=== PATIENT | female | born 1970 | race Caucasian/White ===

== ENCOUNTER → 2021-03-22 | Day surgery (SDC) | payer BC ==
--- NOTE | 2021-03-22 21:43 | RAD REPORT ---
EXAM DESCRIPTION: Ultrasound-guided vacuum assisted breast core biopsy CLINICAL HISTORY: Breast mass 2 MASSES BX COMPARISON: Follow Up Breast Axilla Comp dated 03/10/2021 FINDINGS: Informed consent was obtained and time-out was performed. The patient's left breast was prepped and draped in the usual sterile fashion. 1% lidocaine was used for local anesthetic purposes. Utilizing aseptic technique and ultrasound guidance, a 12 gauge core biopsy device was used to obtain 2 samples of a hypoechoic area with shadowing at the 3 o'clock position in the left breast. A marker was placed. This lesion was slightly more medial to the other biopsy lesion. All collected material was sent for cytology. Patient tolerated procedure well. IMPRESSION: Technically successful ultrasound-guided core biopsy of a left breast mass, also at the 3 o'clock position.
--- NOTE | 2021-03-22 21:44 | RAD REPORT ---
EXAM DESCRIPTION: Ultrasound-guided vacuum assisted breast core biopsy CLINICAL HISTORY: Breast mass R92.8 COMPARISON: Breast Core BX Addtnl dated 03/22/2021 FINDINGS: Informed consent was obtained and time-out was performed. The patient's left breast was prepped and draped in the usual sterile fashion. 1% lidocaine was used for local anesthetic purposes. Utilizing aseptic technique and ultrasound guidance, a 12 gauge core biopsy device was used to obtain 2 core specimens through the mass of interest. A post biopsy clip was then placed. All collected material was sent for cytology. Patient tolerated procedure well. IMPRESSION: Successful ultrasound guided core biopsy of a solid lesion at the 3 o'clock position in the left breast.
== END ==
LOC: DS 09:31
PROVIDERS: ATTEND Obstetrics & Gynecology
DX: R92.8 Other abnormal and inconclusive findings on diagnostic imaging of breast (principal)
CPT/HCPCS: 19083; 19084; 88305